=== PATIENT | female | born 1980 | race Caucasian/White ===

== ENCOUNTER 2018-04-30 13:49 | Emergency (ER) | payer MEDICARE, OTHER ==
[~2018-04-30] VITALS: Ht 160 cm; Wt 84.4 kg
--- OUTSIDE RECORDS SUMMARY | 2018-04-30 14:15 | XMS REPORT ---
Author VALARIE Alvarez Organization [employer] Address Unknown Phone Unavailable Care Team Providers Care Passenger Screener Name Role Phone VALARIE ROBERSON CP Unavailable Allergies, Adverse Reactions, Alerts Substance Reaction Event Type Risperdal dystonia Drug Allergy Cogentin mood changes Drug Allergy Problems Problem Type Condition Code Onset Dates Condition Status Assessment Insect bite W57.XXXA Active Assessment Tooth pain K08.8 Active Medications Medication Code System Code Instructions Start Date End Date Status Dosage Abilify [facility] [address]-12 15 MG Orally Once a day 1 tablet Celexa [facility] [address]-79 40 mg Orally Once a day 1 tablet Procedures Procedure Coding System Code Date Office Visit, New Pt., Level 3 CPT-4 58941 October 21, 2015 ROCEPHIN 1 GM (IM) CPT-4 J0696 October 21, 2015 [facility] VISIT NEW PATIENT CPT-4 G0466 October 21, 2015 THER/PROPH/DIAG INJ, SC/IM CPT-4 72259 October 21, 2015 Vital Signs Date/Time: October 21, 2015 Temperature 98.3 F Weight 200 lbs Height 64.25 in BMI 34.06 Index Blood Pressure Diastolic 68 mmHg Blood Pressure Systolic 108 mmHg Cardiac Monitoring Heart Rate 92 bpm Results No Known Results Summary Purpose [employer] Submission
--- OUTSIDE RECORDS SUMMARY | 2018-04-30 14:15 | XMS REPORT | Continuity of Care Document ---
Author Author [facility] Address Unknown Phone Unavailable Allergies Active Description Code Type Severity Reaction Onset Reported/Identified Relationship to Patient Clinical Status Yes HALDOL [id number] Drug Allergy N/A N/A Yes RISPDERDAL Drug Allergy N/A N/A Yes HALOPERIDOL 64413 DRUG INGREDI Med Other 08/28/2013 Yes RISPERIDONE 69608 DRUG INGREDI Med Other 08/28/2013 Yes Cogentin NKMA N/A N/A 06/13/2017 Yes Respirol NKMA Severe N/A 06/13/2017 Medications Medication Packaging Start Date Stop Date Route Dosage Sig XANAX TAB 02/23/2013 ORAL [id number] three times daily PHENERGAN 02/23/2013 ORAL 1010 every six hours CELEXA 02/23/2013 ORAL 3030 daily PYRIDIUM ORAL 11/13/2013 11/16/2013 ORAL [id number] three times daily PHENERGAN ORAL 11/15/2013 ORAL [id number] twice daily MACROBID ORAL 11/15/2013 11/20/2013 ORAL [id number] twice daily PREDNISONE 12/08/2014 ORAL 1515 three times daily KEFLEX 12/08/2014 Oral 2828 four times each day HYDROXYZINE HCL ORAL 12/03/2015 12/13/2015 ORAL 4040 4 times a day BACTRIM DS ORAL 12/03/2015 12/13/2015 ORAL 2020 twice daily DIFLUCAN ORAL 12/13/2015 12/14/2015 ORAL 11 NOW VITAMINS ORAL 02/24/2017 03/26/2017 ORAL 3030 daily DIFLUCAN ORAL 03/04/2017 03/05/2017 ORAL 11 NOW PROMETHAZINE HCL Oral 03/25/2017 Oral 2828 every six hours LORAZEPAM ORAL 04/15/2017 04/22/2017 ORAL 2121 every 8 hours CELEXA ORAL 04/15/2017 ORAL 3030 daily ARIPiprazole(Abilify) 06/13/2017 Oral Oral, Daily, 0 Refill(s) ondansetron(ondansetron) 2 mL 06/1306/13/2017 IV Push 4 mg 4 mg=2 mL, IV Push, Once ondansetron(ondansetron) 1 tabs 06/13/2017 Oral 4 mg 4 mg=1 tabs, Oral, Once SINGULAIR ORAL 08/06/2017 ORAL 3030 daily FLONASE Nasal 08/06/2017 Nasal 1616 daily CLARITIN ORAL 08/06/2017 ORAL 3030 daily AZITHROMYCIN ORAL 08/06/2017 08/11/2017 ORAL 66 Problems Date Dx Coded Attending Type Code Diagnosis Diagnosed By 06/13/2017 F F32.2 Major depressive disorder, single episode, severe without psychotic features Melanie Escalona 06/14/2017 F F32.2 Major depressive disorder, single episode, severe without psychotic features Sraah Shelton 06/15/2017 Hammonds John Final F15.23 Other stimulant dependence with withdrawal 06/15/2017 Hammonds John Final F31.9 Bipolar disorder, unspecified 06/15/2017 Hammonds John Reason R11.2 Nausea with vomiting, unspecified 06/15/2017 Hammonds John Final Z79.899 Other alf (current) drug therapy 06/15/2017 Hammonds John Final Z88.8 Allergy status to other drugs, medicaments and biological substances status Procedures Code Description Performed By Performed On H2011 Crisis Evaluation Melanie Escalona 06/13/2017 Results Test Result Range CBC With Platelet and Differential - 06/13/17 20:24 Absolute Basophils 0.02 10*3/uL 0.00-0.20 Absolute Eosinophils 0.01 10*3/uL 0.00-0.50 Absolute Lymphocytes 1.05 10*3/uL 0.80-3.30 Absolute Monocytes 0.38 10*3/uL 0.30-1.00 Absolute Neutrophils 8.26 10*3/uL 1.90-7.00 Basophils 0 % 0-2 Eosinophils 0 % 0-4 HCT 33.5 % 37.0-47.0 HGB 11.0 g/dL 12.0-16.0 Immature Granulocytes 0.3 % 0.0-1.0 Lymphocytes 11 % 20-46 MCH 29.2 pg 27.0-32.0 MCHC 32.8 g/dL 32.0-36.0 MCV 88.9 fL 82.0-99.0 Monocytes 4 % 4-11 MPV 8.6 fL 9.4-12.4 Neutrophils 85 % 51-75 Nucleated RBC Automated 0.0 /100 WBC Platelet Count 508 K/uL 150-400 RBC 3.77 10*6/uL 4.00-5.20 RDW 14.3 % 11.5-14.5 WBC 9.8 K/uL 4.8-10.8 Comprehensive Metabolic Panel (CMP) - 06/13/17 20:24 Albumin 3.9 g/dL 3.5-4.8 Alkaline Phosphatase 72 U/L 26-104 ALT (SGPT) 14 U/L 14-54 Anion Gap 8 mEq/L 3-20 AST (SGOT) 18 U/L 15-41 Bilirubin Total 0.4 mg/dL 0.2-1.2 BUN 13 mg/dL 4-20 Calcium 9.4 mg/dL 8.6-10.0 Chloride 105 mEq/L 99-109 CO2 24 mEq/L 22-32 Creatinine 0.84 mg/dL 0.44-1.03 Globulin 3.0 g/dL 1.9-4.3 Glucose 160 mg/dL 70-100 Potassium 3.6 mEq/L 3.6-5.1 Protein 6.9 g/dL 6.1-7.9 Sodium 137 mEq/L 136-144 eGFR - 06/13/17 20:24 eGFR >60 mL/min >60 Screen, Urine NPT - 06/13/17 22:20 Screen, Urine NPT Negative NA GC/CHLAMYDIA (SWAB OR URINE)-RAPID - 03/24/18 11:10 CHLAMYDIA TRACHOMATIS RNA, TMA NOT DETECTED NOT DETECTED NEISSERIA GONORRHOEAE RNA, TMA NOT DETECTED NOT DETECTED COMMENT NRG CULTURE, GENITAL - 03/24/18 11:10 CULTURE, GENITAL SEE NOTE NRG SUREPATH PAP AND HPV mRNA E6/E7 - 03/24/18 11:10 CLINICAL INFORMATION: NRG LMP: NRG PREV. PAP: NRG PREV. BX: NRG SOURCE: Cervix NRG STATEMENT OF ADEQUACY: NRG INTERPRETATION/RESULT: NRG LINUX NETWORK ADMINISTRATOR: NRG HPV mRNA E6/E7, SUREPATH VIAL Not Detected NOT DETECTED REVIEW LINUX NETWORK ADMINISTRATOR: NRG COMMENT NRG Encounters ACCT No. Visit Date/Time Discharge Status Pt. Type Provider Facility Loc./Unit Complaint [id number] 06/13/2017 15:10:00 06/13/2017 23:59:59 CLS Unknown [id number] 06/08/2015 06:04:21 06/08/2015 06:04:22 DIS Outpatient [id number] 08/03/2014 11:08:37 Document Registration [id number] 08/03/2014 11:08:36 Document Registration [id number] 08/03/2014 11:08:35 Document Registration [id number] 03/24/2018 10:00:00 Document Registration [id number] 06/13/2017 18:51:00 06/13/2017 23:28:00 DIS Emergency [facility] on [facility] ED vomiting [id number] 06/14/2017 05:16:29 Document Registration [id number] 10/07/2017 17:56:20 10/06/2017 10:45:01 DIS Unknown [facility] [id number] 12/11/2014 09:01:53 12/11/2014 09:01:53 DIS Outpatient [id number] 12/08/2014 09:21:35 Document Registration [id number] 12/08/2014 09:21:32 Document Registration [id number] 12/08/2014 09:21:28 Document Registration [id number] 12/08/2014 09:21:24 Document Registration [id number] 12/08/2014 09:21:20 Document Registration [id number] 12/08/2014 09:21:16 Document Registration [id number] 12/08/2014 09:21:09 Document Registration [id number] 12/08/2014 09:21:04 Document Registration [id number] 12/08/2014 09:21:00 Document Registration [id number] 12/08/2014 09:20:56 Document Registration [id number] 12/08/2014 09:20:53 Document Registration [id number] 12/08/2014 09:20:49 Document Registration [id number] 12/08/2014 09:20:43 Document Registration [id number] 12/08/2014 09:20:38 Document Registration [id number] 12/08/2014 09:20:34 Document Registration [id number] 12/08/2014 09:20:28 Document Registration [id number] 12/08/2014 09:04:35 Document Registration [id number] 12/08/2014 09:04:30 Document Registration [id number] 12/08/2014 09:04:25 Document Registration
--- OUTSIDE RECORDS SUMMARY | 2018-04-30 14:15 | XMS REPORT | Referral Summary ---
Author Author [facility] Organization [facility] Address Unknown Phone Unavailable Care Team Providers Care Medical Sociologist Name Role Phone Angel Cruz PCP Encounter VC Date(s): 06/13/17 - 06/13/17 [facility] [address], [place] [address] Discharge Diagnosis: Vomiting Discharge Diagnosis: Nausea Discharge Diagnosis: Drug withdrawal Discharge Disposition: 01-Home or Self Care Attending Physician: Harsha Hammonds MD Admitting Physician: Harsha Hammonds MD Vital Signs Most recent to 1 oldest [Reference Range]: Temperature Temporal 36 degC Artery [36.3-37.8 *LOW* degC] (06/13/17 7:07 PM) Peripheral Pulse 83 bpm Rate [60-100 bpm] (06/13/17 7:07 PM) Heart Rate Monitored 85 bpm [60-100 bpm] (06/13/17 11:06 PM) Respiratory Rate 18 br/min [14-20 br/min] (06/13/17 9:44 PM) Blood Pressure 157/94 mmHg [90-140/60-90 mmHg] *HI* (06/13/17 10:44 PM) SpO2 98 % (06/13/17 9:44 PM) Problem List Condition Effective Dates Status Health Status Informant Depressed(Confirmed) Active patient Allergies, Adverse Reactions, Alerts Substance Reaction Severity Status Respirol Severe Active Cogentin Active Medications Abilify Oral, Daily, 0 Refill(s) Start Date: 06/13/17 Status: Ordered Results Hematology Most recent to 1 oldest [Reference Range]: WBC [4.8-10.8 9.8 10*3/uL 10*3/uL] (06/13/17 8:24 PM) RBC [4.00-5.20] 3.77 *LOW* (06/13/17 8:24 PM) Hgb [12.0-16.0 11.0 gm/dL gm/dL] *LOW* (06/13/17 8:24 PM) Hct [37.0-47.0 %] 33.5 % *LOW* (06/13/17 8:24 PM) MCV [82.0-99.0 fL] 88.9 fL (06/13/17 8:24 PM) MCH [27.0-32.0 pg] 29.2 pg (06/13/17 8:24 PM) MCHC [32.0-36.0 32.8 gm/dL gm/dL] (06/13/17 8:24 PM) RDW [11.5-14.5 %] 14.3 % (06/13/17 8:24 PM) Platelet [150-400 508 10*3/uL 10*3/uL] *HI* (06/13/17 8:24 PM) MPV [9.4-12.4 fL] 8.6 fL *LOW* (06/13/17 8:24 PM) Immature 0.3 % Granulocytes (06/13/17 8:24 PM) [0.0-1.0 %] Neutrophils [51-75 85 % %] *HI* (06/13/17 8:24 PM) Lymphocytes [20-46 11 % %] *LOW* (06/13/17 8:24 PM) Monocytes [4-11 %] 4 % (06/13/17 8:24 PM) Eosinophils [0-4 %] 0 % (06/13/17 8:24 PM) Basophils [0-2 %] 0 % (06/13/17 8:24 PM) Neutro Absolute 8.26 [1.90-7.00] *HI* (06/13/17 8:24 PM) Lymph Absolute 1.05 [0.80-3.30] (06/13/17 8:24 PM) Posey Absolute 0.38 [0.30-1.00] (06/13/17 8:24 PM) Eos Absolute 0.01 [0.00-0.50] (06/13/17 8:24 PM) Baso Absolute 0.02 [0.00-0.20] (06/13/17 8:24 PM) Nucleated RBC 0.0 /100 WBC Automated [0 /100 (06/13/17 8:24 PM) WBC] Chemistry Most recent to 1 oldest [Reference Range]: Sodium Lvl [136-144 137 mEq/L mEq/L] (06/13/17 8:24 PM) Potassium Lvl 3.6 mEq/L [3.6-5.1 mEq/L] (06/13/17 8:24 PM) Chloride [99-109 105 mEq/L mEq/L] (06/13/17 8:24 PM) CO2 [22-32 mEq/L] 24 mEq/L (06/13/17 8:24 PM) AGAP [3-20 mEq/L] 8 mEq/L (06/13/17 8:24 PM) BUN [4-20 mg/dL] 13 mg/dL (06/13/17 8:24 PM) Glucose Lvl [70-100 160 mg/dL mg/dL] *HI* (06/13/17 8:24 PM) Creatinine Lvl 0.84 mg/dL [0.44-1.03 mg/dL] (06/13/17 8:24 PM) eGFR [>60 mL/min] >60 mL/min 1 (06/13/17 8:24 PM) Calcium Lvl 9.4 mg/dL [8.6-10.0 mg/dL] (06/13/17 8:24 PM) Albumin Lvl [3.5-4.8 3.9 gm/dL gm/dL] (06/13/17 8:24 PM) Total Protein 6.9 gm/dL [6.1-7.9 gm/dL] (06/13/17 8:24 PM) Globulin [1.9-4.3 3.0 gm/dL gm/dL] (06/13/17 8:24 PM) ALT [14-54 U/L] 14 U/L (06/13/17 8:24 PM) AST [15-41 U/L] 18 U/L (06/13/17 8:24 PM) Alk Phos [26-104 72 U/L U/L] (06/13/17 8:24 PM) Bili Total [0.2-1.2 0.4 mg/dL 2 mg/dL] (06/13/17 8:24 PM) 1Result Comment: Multiply eGFR results by 1.21 for race. 2Result Comment: Naproxen, specifically the metabolite O-desmethylnaproxen, may cause spurious elevation in Total Bilirubin levels. Immunizations No data available for this section Procedures No data available for this section Social History Social History Type Response Smoking Status Never (less than 100 in lifetime) entered on: 06/13/17 Assessment and Plan No data available for this section
--- OUTSIDE RECORDS SUMMARY | 2018-04-30 14:15 | XMS REPORT ---
Author Author SANTO MCLAIN [facility] Address [address] [place] [address] Care Team Providers Care Medical Billing Assistant Name Role Phone SANTO MCLAIN Unavailable PROBLEMS No Known Problems ALLERGIES Substance Reaction Event Type Date Status Risperdal dystonia Drug Allergy Feb, Active Cogentin mood changes Drug Allergy Feb, Active ENCOUNTERS Encounter Location Date Diagnosis [facility] [address] [id number], [place] [address] Feb, Well woman exam Z01.419 [facility] [address] [id number][place] [id number] Sep, Encounter for dental examination Z01.20 [facility] [address] [id number] [id number] Sep, Tooth pain K08.8 and Insect bite W57.XXXA IMMUNIZATIONS No Known Immunizations SOCIAL HISTORY Never Assessed REASON FOR VISIT Pap-h/o precancerous cells at previous pap (untreated). Kathy Daniel MA, Rash/ blister on right hand x 2-3 days. Kathy Daniel MA PLAN OF CARE Activity Details Follow Up 1 Year, prn Reason: Pending Test PAP AND HPV VITAL SIGNS Height 64.25 in 2018-03-24 Weight 188.2 lbs 2018-03-24 Temperature 98.6 degrees Fahrenheit 2018-03-24 Heart Rate 110 bpm 2018-03-24 Respiratory Rate 16 2018-03-24 Oximetry 97 % 2018-03-24 BMI 32.05 kg/m2 2018-03-24 Blood pressure systolic 132 mmHg 2018-03-24 Blood pressure diastolic 88 mmHg 2018-03-24 MEDICATIONS Medication Instructions Dosage Frequency Start Date End Date Duration Status Perphenazine 4 MG Orally Once a day 1 tablet 24h 30 day(s) Active Metformin HCl 850 MG Orally twice a day 1 tablet with a meal 12h Active Celexa 20 MG Orally Once a day 1 tablet 24h 30 day(s) Active RESULTS No Results PROCEDURES Procedure Date Ordered Result Body Site SPECIMEN HANDLING Mar 24, 2018 LAB NOT BILLED BY [facility] Mar 24, 2018 [facility] VISIT ESTABLISHED PATIENT Mar 24, 2018 INSTRUCTIONS MEDICATIONS ADMINISTERED No Known Medications MEDICAL (GENERAL) HISTORY Type Description Date Medical History depression Medical History schizophrenia Surgical History tonsilectomy Surgical History c-sec x2 Hospitalization History Vomiting - [facility] 06/13/17
--- OUTSIDE RECORDS SUMMARY | 2018-04-30 14:15 | XMS REPORT ---
Author Author SANTO MCLAIN [facility] Address [address] [place] [address] Care Team Providers Care Foreign Language Stenographer Name Role Phone SANTO MCLAIN Unavailable PROBLEMS No Known Problems ALLERGIES No Information ENCOUNTERS Encounter Location Date Diagnosis [facility] [id number], [place] [address] Mar, [facility] [address] [id number], [place] [address] Feb, Well woman exam Z01.419 [facility] [address] [id number][place] [id number] Sep, Encounter for dental examination Z01.20 [facility] [address] [id number], [place] [id number] Sep, Tooth pain K08.8 and Insect bite W57.XXXA IMMUNIZATIONS No Known Immunizations SOCIAL HISTORY Never Assessed REASON FOR VISIT Lab Results [facility] PLAN OF CARE VITAL SIGNS MEDICATIONS Unknown Medications RESULTS No Results PROCEDURES No Known procedures INSTRUCTIONS MEDICATIONS ADMINISTERED No Known Medications MEDICAL (GENERAL) HISTORY Type Description Date Medical History depression Medical History schizophrenia Surgical History tonsilectomy Surgical History c-sec x2 Hospitalization History Vomiting - [facility] 06/13/17
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
[2018-04-30 14:45] LABS: BILIRUBIN,URINE NEGATIVE (NEGATIVE); CLARITY,URINE SLIGHTLY CLOUDY; COLOR,URINE YELLOW; GLUCOSE, URINE (UA) NEGATIVE (NEGATIVE); KETONES,URINE NEGATIVE (NEGATIVE); LEUKOCYTE ESTERASE ,URINE 1+ (NEGATIVE); NITRITE,URINE NEGATIVE (NEGATIVE); PH,URINE 6 (5-9); PROTEIN,URINE NEGATIVE (NEGATIVE); UROBILINOGEN,URINE NORMAL (NORMAL)
[2018-04-30 14:50] LABS: BACTERIA,URINE FEW /HPF
[2018-04-30 15:16] LABS: BASOPHILS % (AUTO) 1 % (0-10); EOSINOPHILS # (AUTO) 0.1 10^3/uL (0.0-0.3); EOSINOPHILS % (AUTO) 2 % (0-10); HEMATOCRIT 37 % (35-52); HEMOGLOBIN 12.4 G/DL (11.5-16.0); LYMPHOCYTES # (AUTO) 2.8 X 10^3 (1.0-4.0); LYMPHOCYTES % (AUTO) 38 % (12-44); MEAN CORPUSCULAR HEMOGLOBIN 32 PG (25-34); MEAN CORPUSCULAR HGB CONC 34 G/DL (32-36); MEAN CORPUSCULAR VOLUME 95 FL (80-99); MEAN PLATELET VOLUME 8.6 FL (7.4-10.4); MONOCYTES # (AUTO) 0.7 X 10^3 (0.0-1.0); MONOCYTES % (AUTO) 9 % (0-12); NEUTROPHILS # (AUTO) 3.7 X 10^3 (1.8-7.8); NEUTROPHILS % (AUTO) 51 % (42-75); PLATELET COUNT 515 10^3/uL (130-400); RED BLOOD COUNT 3.86 10^6/uL (4.35-5.85); RED CELL DISTRIBUTION WIDTH 14.2 % (10.0-14.5); WHITE BLOOD COUNT 7.3 10^3/uL (4.3-11.0)
[2018-04-30 15:36] LABS: ALANINE AMINOTRANSFERASE 10 U/L (0-55); ALBUMIN 4.5 GM/DL (3.2-4.5); ALKALINE PHOSPHATASE 64 U/L (40-136); BILIRUBIN,TOTAL 0.5 MG/DL (0.1-1.0); BUN/CREATININE RATIO 9; CALCIUM 9.5 MG/DL (8.5-10.1); CARBON DIOXIDE 19 MMOL/L (21-32); CHLORIDE 107 MMOL/L (98-107); CREATININE SERUM 0.86 MG/DL (0.60-1.30); GFR ESTIMATED > 60; GLUCOSE 86 MG/DL (70-105); POTASSIUM 3.3 MMOL/L (3.6-5.0); SODIUM 139 MMOL/L (135-145); TOTAL PROTEIN 7.3 GM/DL (6.4-8.2)
[2018-04-30] MEDS ORDERED: CITA10TA12 PO (15:52)
[2018-04-30] MEDS ORDERED: ARIP5TAB12 PO (15:52)
[2018-04-30 15:58] VITALS: BP 158/87
== END 2018-04-30 15:55 | disposition home or self-care (01) ==
LOC: ER 13:51
DX: F25.9 Schizoaffective disorder, unspecified (principal); F32.9 Major depressive disorder, single episode, unspecified; F41.9 Anxiety disorder, unspecified; Z88.8 Allergy status to other drugs, medicaments and biological substances
CPT/HCPCS: 36415; 80053; 81000; 84703; 85025; 93005